=== PATIENT | female | born 1990 | race Caucasian/White ===

== ENCOUNTER 2024-05-03 02:47 | Emergency (ER) | payer MEDICAID ==
[~2024-05-03] VITALS: Ht 160 cm; Wt 91.0 kg
[2024-05-03 03:03] VITALS: BP 142/78; PULSE 106; RESP 20; TEMP 98.2; O2SAT 98
[2024-05-03] MEDS: ONDANSETRON 4MG ODT PO STA (04:07)
[2024-05-03 04:14] LABS: BASOPHILS % 0.4 % (0.0-2.0); EOSINOPHILS % 4.3 % (0.0-5.0); HEMATOCRIT. 34.6 % (36.0-48.0); HEMOGLOBIN. 11.3 g/dL (12.0-16.0); LYMPHOCYTES % 13.7 % (20.0-50.0); MEAN CORPUSCULAR HGB CONC 32.7 g/dL (31.0-37.0); MEAN CORPUSCULAR VOLUME 88.7 fL (81.0-99.0); MEAN PLATELET VOLUME 8.1 fl (7.4-10.4); MONOCYTES % 6.2 % (2.0-8.0); NEUTROPHILS % 75.4 % (40.0-76.0); PLATELET 373 x1000/uL (130-400); RED CELL DISTRIBUTION WIDTH 13.6 % (11.6-14.6); WHITE BLOOD COUNT 15.8 x1000/uL (4.5-11.0)
[2024-05-03 04:16] LABS: CHLORIDE 107 mEq/L (98-107); SODIUM 141 mEq/L (136-145)
[2024-05-03 04:17] LABS: CALCIUM 9.4 mg/dL (8.7-10.4); CARBON DIOXIDE 26 mEq/L (21-32)
[2024-05-03 04:22] LABS: CREATININE 1.5 mg/dL (0.6-1.0); GLUCOSE 123 mg/dL (70-105); UREA NITROGEN BLOOD 20 mg/dL (9-23)
[2024-05-03 04:24] LABS: ALANINE AMINOTRANSFERASE 13 IU/L (10-49); ALBUMIN 4.2 g/dL (3.2-4.8); ASPARTATE AMINOTRANSFERASE 18 IU/L (<34)
[2024-05-03 04:25] LABS: BILIRUBIN TOTAL 0.3 mg/dL (0.1-1.0)
[2024-05-03 04:49] LABS: INR 0.9
[2024-05-03 04:58] LABS: BILIRUBIN DIRECT < 0.1 mg/dL (<=3.0)
[2024-05-03 05:52] LABS: CLARITY URINE CLOUDY (CLEAR); COLOR URINE YELLOW (YELLOW); GLUCOSE URINE NEGATIVE (NEGATIVE); KETONES URINE NEGATIVE (NEGATIVE); LEUKOCYTE ESTERASE URINE 3+ (NEGATIVE); NITRITE URINE NEGATIVE (NEGATIVE); OCCULT BLOOD URINE TRACE (NEGATIVE); PROTEIN URINE TRACE (NEGATIVE); SPECIFIC GRAVITY URINE 1.008 (1.005-1.030); UROBILINOGEN URINE 0.2 E.U./dL (0.2-1.0)
[2024-05-03] MEDS ORDERED: NITR100C MT (05:54)
[2024-05-03 06:35] LABS: BACTERIA URINE 1+; RBC URINE NONE SEEN /hpf (0-2); SQUAMOUS EPITHELIAL CELL URINE FEW /lpf (RARE/1+)
== END 2024-05-03 06:05 | disposition home or self-care (01) ==
LOC: ER 02:47
DX: R10.9 Unspecified abdominal pain (principal); R10.2 Pelvic and perineal pain; I10 Essential (primary) hypertension; E11.9 Type 2 diabetes mellitus without complications; F41.9 Anxiety disorder, unspecified; N28.9 Disorder of kidney and ureter, unspecified; Z88.1 Allergy status to other antibiotic agents
CPT/HCPCS: 99283; 80076; 80048; 81003; 81025; 83690; 85025; 85610; 36415; Q0162

== ENCOUNTER 2024-05-14 15:56 | Emergency (ER) | payer MEDICAID ==
[~2024-05-14] VITALS: Ht 162.6 cm; Wt 115.0 kg
[~2024-05-14 15:56] MED LIST: NITR100C MT
[2024-05-14 15:58] VITALS: BP 179/98; PULSE 120; RESP 18; TEMP 99.1; O2SAT 100
== END 2024-05-14 21:52 | disposition left against medical advice (07) ==
LOC: ER 15:56
DX: M79.646 Pain in unspecified finger(s) (principal); Z53.21 Procedure and treatment not carried out due to patient leaving prior to being seen by health care provider